=== PATIENT | male | born 1950 | race Caucasian/White ===

== ENCOUNTER 2020-06-01 22:07 | Emergency (ER) | payer OTHER ==
[2020-06-01] MEDS ORDERED: MAG HYDROX/AL HYDROX/SIMETH ES 30 ML SUSP UDCUP ONE (22:59)
[2020-06-01] MEDS ORDERED: ONDANSETRON HCL 4 MG/2 ML VIAL ONE (22:59)
[2020-06-01] MEDS ORDERED: LIDOCAINE HCL 2% VISCOUS 15 ML UDCUP ONE (22:59)
[2020-06-01] MEDS ORDERED: FAMOTIDINE/PF 20 MG/2 ML VIAL IV ONE (23:00)
[2020-06-02 00:37] LABS: BASOPHILS % (AUTO) 0.7 % (0.0-5.0); EOSINOPHILS % (AUTO) 5.7 % (0.0-8.0); HEMATOCRIT 36.6 % (42-54); MEAN CORPUSCULAR HEMOGLOBIN 32.1 pg (27.0-33.0); MEAN CORPUSCULAR HGB CONC 34.2 g/dL (32.0-36.0); MEAN CORPUSCULAR VOLUME 94.1 fL (79-99); MONOCYTES % (AUTO) 11.5 % (3.0-13.0); NEUTROPHILS % (AUTO) 62.8 % (40.0-77.0); PLATELET COUNT (AUTO) 170 K/uL (130-400); RED BLOOD CELL COUNT(AUTO) 3.89 MIL/uL (4.50-6.20); RED CELL DISTRIBUTION WIDTH 12.7 % (11.0-15.5); WHITE BLOOD COUNT (AUTO) 6.7 K/uL (4.8-10.8)
[2020-06-02 00:40] LABS: CREATININE 0.9 mg/dL (0.5-1.5); POTASSIUM 3.6 mmol/L (3.5-5.1)
[2020-06-02 00:55] LABS: ALBUMIN 3.3 g/dL (3.5-5.0); BILIRUBIN,TOTAL 0.2 mg/dL (0.2-1.0); TOTAL PROTEIN, SERUM 6.2 g/dL (6.0-8.3)
== END 2020-06-02 01:27 | disposition home or self-care (01) ==
LOC: EDH 22:07
DX: K29.70 Gastritis, unspecified, without bleeding (principal); I10 Essential (primary) hypertension; J43.9 Emphysema, unspecified
CPT/HCPCS: 36415; 80053; 82550; 83690; 84484; 85025; 93005; 96361; 96374; 96375; 99284; J2405; J3490

== ENCOUNTER 2020-06-06 20:55 | Emergency (ER) | payer OTHER ==
[2020-06-06 21:47] LABS: ABG BASE EXCESS 0.5 mmol/L (-2.0-3.0); ABG HCO3 24.6 mmol/L (21.0-28.0); ABG OXYGEN SATURATION 96.3 % (95.0-99.0); ABG PCO2 38 mmHg (35-48)
[2020-06-06 21:59] LABS: BASOPHILS % (AUTO) 0.7 % (0.0-5.0); EOSINOPHILS % (AUTO) 4.6 % (0.0-8.0); HEMATOCRIT 39.4 % (42-54); LYMPHOCYTES % (AUTO) 19.3 % (21.0-51.0); MEAN CORPUSCULAR HEMOGLOBIN 32.5 pg (27.0-33.0); MEAN CORPUSCULAR HGB CONC 34.8 g/dL (32.0-36.0); MEAN CORPUSCULAR VOLUME 93.4 fL (79-99); MONOCYTES % (AUTO) 10.1 % (3.0-13.0); PLATELET COUNT (AUTO) 178 K/uL (130-400); RED BLOOD CELL COUNT(AUTO) 4.22 MIL/uL (4.50-6.20); RED CELL DISTRIBUTION WIDTH 12.3 % (11.0-15.5)
[2020-06-06] MEDS ORDERED: ALBUTEROL INHALER 90MCG/INH IH ONE (22:02)
[2020-06-06 22:11] LABS: INR 0.96 (0.85-1.15); PARTIAL THROMBOPLASTIN TIME 26.4 SEC (26.3-35.5); PROTHROMBIN TIME 10.4 SEC (9.6-11.6)
[2020-06-06 22:20] LABS: B-TYPE NATRIURETIC PEPTIDE 7 pg/mL (0-100)
[2020-06-06 22:36] LABS: ALBUMIN 3.6 g/dL (3.5-5.0); BILIRUBIN,TOTAL 0.2 mg/dL (0.2-1.0); CREATININE 1.1 mg/dL (0.5-1.5); POTASSIUM 3.9 mmol/L (3.5-5.1); TOTAL PROTEIN, SERUM 6.8 g/dL (6.0-8.3)
[2020-06-06 23:02] LABS: APPEARANCE,URINE Clear (CLEAR); BILIRUBIN,URINE Negative (NEGATIVE); COLOR,URINE Yellow (YELLOW); GLUCOSE, URINE (UA) Negative (NEGATIVE); KETONES,URINE Negative (NEGATIVE); LEUKOCYTE ESTERASE ,URINE Negative (NEGATIVE); NITRATE,URINE Negative (NEGATIVE); OCCULT BLOOD,URINE Negative (NEGATIVE); PH,URINE 5.5 (5.0-8.0); PROTEIN,URINE Negative (NEGATIVE); UROBILINOGEN,URINE 0.2 mg/dL (0.2-1.0)
[2020-06-06] MEDS ORDERED: PREDNISONE 10 MG TABLET ONE (23:07)
[2020-06-06] MEDS ORDERED: AZITHROMYCIN 500MG+NS 250ML 250 ML IV ONE (23:07)
[2020-06-06] MEDS ORDERED: PREDNISONE 20 MG TABLET ONE (23:07)
== END 2020-06-07 00:34 | disposition home or self-care (01) ==
LOC: EDH 20:55
DX: J44.1 Chronic obstructive pulmonary disease with (acute) exacerbation (principal); I10 Essential (primary) hypertension; R11.2 Nausea with vomiting, unspecified; Z20.828 Contact with and (suspected) exposure to other viral communicable diseases
CPT/HCPCS: 36415; 36600; 71045; 80053; 81003; 82550; 82803; 83605; 83690; 83880; 84484; 85025; 85610; 85730; 87040 ×2; 87426; 87804 ×2; 93005; 96365; 99285; J0456; J7512; U0003

== ENCOUNTER 2020-06-20 21:27 | Emergency (ER) | payer OTHER ==
[2020-06-20 22:47] LABS: BASOPHILS % (AUTO) 0.5 % (0.0-5.0); EOSINOPHILS % (AUTO) 2.6 % (0.0-8.0); LYMPHOCYTES % (AUTO) 13.3 % (21.0-51.0); MEAN CORPUSCULAR HEMOGLOBIN 32.3 pg (27.0-33.0); MEAN CORPUSCULAR HGB CONC 34.1 g/dL (32.0-36.0); MEAN CORPUSCULAR VOLUME 94.7 fL (79-99); MONOCYTES % (AUTO) 10.5 % (3.0-13.0); NEUTROPHILS % (AUTO) 72.6 % (40.0-77.0); PLATELET COUNT (AUTO) 183 K/uL (130-400); RED BLOOD CELL COUNT(AUTO) 4.12 MIL/uL (4.50-6.20); WHITE BLOOD COUNT (AUTO) 10.9 K/uL (4.8-10.8)
[2020-06-20 23:11] LABS: ALBUMIN 3.6 g/dL (3.5-5.0); BILIRUBIN,TOTAL 0.2 mg/dL (0.2-1.0)
== END 2020-06-20 23:39 | disposition home or self-care (01) ==
LOC: EDH 21:27
DX: R15.9 Full incontinence of feces (principal); J44.9 Chronic obstructive pulmonary disease, unspecified; I10 Essential (primary) hypertension; Z98.890 Other specified postprocedural states
CPT/HCPCS: 36415; 80053; 82270; 83690; 84484; 85025; 87046; 87324; 93005

== ENCOUNTER 2020-07-27 19:09 | Emergency (ER) | payer OTHER ==
[2020-07-27] MEDS ORDERED: OCTYL 2-CYANOACRYLATE 1 EACH TP ONE (19:48)
== END 2020-07-27 20:13 | disposition home or self-care (01) ==
LOC: EDH 19:09
DX: S61.210A Laceration without foreign body of right index finger without damage to nail, initial encounter (principal); J43.9 Emphysema, unspecified; I10 Essential (primary) hypertension; J45.909 Unspecified asthma, uncomplicated; W26.0XXA Contact with knife, initial encounter; Y93.89 Activity, other specified; Y92.89 Other specified places as the place of occurrence of the external cause; Y99.8 Other external cause status
CPT/HCPCS: 12001

== ENCOUNTER 2020-08-11 00:34 | Observation (INO) | payer OTHER ==
[~2020-08-11] VITALS: Ht 177.8 cm; Wt 67.6 kg
[2020-08-11 01:00] LABS: BASOPHILS % (AUTO) 0.8 % (0.0-5.0); EOSINOPHILS % (AUTO) 4.7 % (0.0-8.0); HEMATOCRIT 40.9 % (42-54); LYMPHOCYTES % (AUTO) 18.7 % (21.0-51.0); MEAN CORPUSCULAR HEMOGLOBIN 32.3 pg (27.0-33.0); MEAN CORPUSCULAR HGB CONC 34.2 g/dL (32.0-36.0); MEAN CORPUSCULAR VOLUME 94.2 fL (79-99); MONOCYTES % (AUTO) 12.5 % (3.0-13.0); NEUTROPHILS % (AUTO) 62.9 % (40.0-77.0); PLATELET COUNT (AUTO) 233 K/uL (130-400); RED BLOOD CELL COUNT(AUTO) 4.34 MIL/uL (4.50-6.20); RED CELL DISTRIBUTION WIDTH 11.8 % (11.0-15.5); WHITE BLOOD COUNT (AUTO) 8.5 K/uL (4.8-10.8)
[2020-08-11 01:18] LABS: INR 0.96 (0.85-1.15); PARTIAL THROMBOPLASTIN TIME 26.3 SEC (26.3-35.5); PROTHROMBIN TIME 10.4 SEC (9.6-11.6)
[2020-08-11 01:20] LABS: B-TYPE NATRIURETIC PEPTIDE < 5 pg/mL (0-100)
[2020-08-11 01:43] LABS: ALBUMIN 4.1 g/dL (3.5-5.0); BILIRUBIN,TOTAL 0.4 mg/dL (0.2-1.0); CREATININE 1.1 mg/dL (0.5-1.5); POTASSIUM 3.8 mmol/L (3.5-5.1); TOTAL PROTEIN, SERUM 7.3 g/dL (6.0-8.3)
[2020-08-11 02:15] LABS: AMPHET/METH SCREEN,URINE NEGATIVE (NEGATIVE); BARBITURATE SCREEN, URINE NEGATIVE (NEGATIVE); BENZODIAZEPINES SCREEN,URINE NEGATIVE (NEGATIVE); CANNABINOID SCREEN,URINE NEGATIVE (NEGATIVE); COCAINE SCREEN,URINE NEGATIVE (NEGATIVE); OPIATE SCREEN,URINE NEGATIVE (NEGATIVE); PHENCYCLIDINE SCREEN,URINE NEGATIVE (NEGATIVE)
[2020-08-11] MEDS ORDERED: NITROGLYCERIN 1GM/1 INCH PACKET TD ONE (04:33)
[2020-08-11] MEDS ORDERED: NITROGLYCERIN 0.4 MG SL TAB SL ONE (04:33)
[2020-08-11] MEDS ORDERED: LACTULOSE 20 GM/30 ML UDCUP PO PRN (05:00)
[2020-08-11] MEDS ORDERED: NITROGLYCERIN 0.4 MG SL TAB SL PRN (05:00)
[2020-08-11] MEDS: NITROGLYCERIN 1GM/1 INCH PACKET TD SCH ×3 (05:00→21:18)
[2020-08-11] MEDS ORDERED: HYDRALAZINE HCL 20 MG/ML VIAL IV PRN (05:00)
[2020-08-11] MEDS ORDERED: ACETAMINOPHEN 325 MG TAB PO PRN ×2 (05:00)
[2020-08-11] MEDS ORDERED: ONDANSETRON HCL 4 MG/2 ML VIAL IV PRN (05:00)
[2020-08-11] MEDS ORDERED: SODIUM CHLORIDE 0.9% 1000ML 1,000 ML IV SCH (05:15)
[2020-08-11 06:20] LABS: HEMOGLOBIN A1C 5.8 % (4.0-6.0)
[2020-08-11 06:23] LABS: THYROID STIMULATING HORMONE 1.79 uIU/mL (0.36-3.74)
[2020-08-11] MEDS: FAMOTIDINE 20MG TAB 20 MG TAB PO SCH ×2 (09:00→21:16)
[2020-08-11] MEDS: ASPIRIN 325 MG TABLET PO SCH (09:00)
[2020-08-11] MEDS: METOPROLOL TARTRATE 25 MG TAB PO SCH ×2 (09:00→21:16)
[2020-08-11] MEDS: ENOXAPARIN SODIUM 40 MG/0.4 ML SYRINGE SQ SCH (09:00)
[2020-08-11] MEDS ORDERED: ASPIRIN 325 MG TABLET ONE (12:58)
[2020-08-11] MEDS ORDERED: METOPROLOL TARTRATE 25 MG TAB ONE (12:58)
[2020-08-11] MEDS ORDERED: ENOXAPARIN SODIUM 40 MG/0.4 ML SYRINGE SQ ONE (12:58)
[2020-08-11] MEDS ORDERED: FAMOTIDINE 20MG TAB 20 MG TAB ONE (12:58)
[2020-08-11] MEDS: ENALAPRIL MALEATE 10 MG TABLET PO SCH (13:45)
[2020-08-11] MEDS ORDERED: IPRATROPIUM/ALBUTEROL SULFATE 3 ML SOLUTION IH SCH (14:00)
[2020-08-11] MEDS ORDERED: IPRATROPIUM/ALBUTEROL SULFATE 3 ML SOLUTION IH ONE (14:19)
[2020-08-11 15:09] VITALS: BP 162/88
--- NOTE | 2020-08-11 17:17 | NUR ---
SPOKE WITH PATIENT FOR DC PLANNING Live alone, is active and independent, no dme , drives, no family here in [place]; follows with dr. das at [facility] [address] and with [facility]. Updated face sheet with sisters number. DCP home STATES WILL DRIVE HIMSELF HOME poss dc today ? Addendum: 08/11/20 at 1719 by STEVEN CAO RN CM Amended: Links added.
[2020-08-11] MEDS: IPRATROPIUM/ALBUTEROL SULFATE 3 ML SOLUTION IH PRN (18:52)
[2020-08-11 19:45] VITALS: BP 144/86
[2020-08-11 23:28] VITALS: BP 130/81
[2020-08-12 03:39] VITALS: BP 129/81
[2020-08-12 05:54] LABS: BASOPHILS % (AUTO) 0.9 % (0.0-5.0); EOSINOPHILS % (AUTO) 5.3 % (0.0-8.0); HEMATOCRIT 40.7 % (42-54); LYMPHOCYTES % (AUTO) 15.9 % (21.0-51.0); MEAN CORPUSCULAR HGB CONC 34.2 g/dL (32.0-36.0); MEAN CORPUSCULAR VOLUME 93.8 fL (79-99); MONOCYTES % (AUTO) 12.1 % (3.0-13.0); NEUTROPHILS % (AUTO) 65.2 % (40.0-77.0); PLATELET COUNT (AUTO) 239 K/uL (130-400); RED BLOOD CELL COUNT(AUTO) 4.34 MIL/uL (4.50-6.20); RED CELL DISTRIBUTION WIDTH 11.8 % (11.0-15.5); WHITE BLOOD COUNT (AUTO) 8.4 K/uL (4.8-10.8)
[2020-08-12] MEDS: NITROGLYCERIN 1GM/1 INCH PACKET TD SCH ×3 (06:01→21:18)
[2020-08-12] MEDS: IPRATROPIUM/ALBUTEROL SULFATE 3 ML SOLUTION IH PRN ×2 (06:20→14:48)
[2020-08-12 07:45] VITALS: BP 114/68
[2020-08-12] MEDS: ASPIRIN 325 MG TABLET PO SCH (09:19)
[2020-08-12] MEDS: ENALAPRIL MALEATE 10 MG TABLET PO SCH ×2 (09:20→14:24)
[2020-08-12] MEDS: METOPROLOL TARTRATE 25 MG TAB PO SCH ×2 (09:20→21:18)
[2020-08-12] MEDS: FAMOTIDINE 20MG TAB 20 MG TAB PO SCH ×2 (09:20→21:18)
[2020-08-12] MEDS: ENOXAPARIN SODIUM 40 MG/0.4 ML SYRINGE SQ SCH (09:21)
[2020-08-12 11:32] VITALS: BP 116/68
--- NOTE | 2020-08-12 14:15 | NUR ---
[facility] PER NM THEIR IS NO STAFF HERE AT THE [facility] TO DO PROCEDURE. [facility] CALLED ([facility]) TO TRY AND TRANSFER PATIENT TO RECEIVE [facility] BUT NO CARDIOLOGY DR OR NURSE ARE AVAILABLE. DR NORTON WAS CALLED WHO IS [facility] TODAY AND STATED THAT PATIENT WILL HAVE TO STAY TILL FRIDAY FOR [facility].
[2020-08-12 16:00] VITALS: BP 111/74
[2020-08-12 20:00] VITALS: BP 120/75
[2020-08-13] VITALS: BP 125/80
[2020-08-13 04:00] VITALS: BP 119/77
[2020-08-13] MEDS: NITROGLYCERIN 1GM/1 INCH PACKET TD SCH ×3 (05:07→20:48)
[2020-08-13 06:00] LABS: EOSINOPHILS % (AUTO) 5.1 % (0.0-8.0); HEMATOCRIT 43.2 % (42-54); LYMPHOCYTES % (AUTO) 16.3 % (21.0-51.0); MEAN CORPUSCULAR HEMOGLOBIN 32.2 pg (27.0-33.0); MEAN CORPUSCULAR HGB CONC 33.8 g/dL (32.0-36.0); MEAN CORPUSCULAR VOLUME 95.2 fL (79-99); MONOCYTES % (AUTO) 10.7 % (3.0-13.0); NEUTROPHILS % (AUTO) 66.5 % (40.0-77.0); PLATELET COUNT (AUTO) 242 K/uL (130-400); RED BLOOD CELL COUNT(AUTO) 4.54 MIL/uL (4.50-6.20); RED CELL DISTRIBUTION WIDTH 11.8 % (11.0-15.5); WHITE BLOOD COUNT (AUTO) 8.4 K/uL (4.8-10.8)
[2020-08-13 06:17] LABS: MAGNESIUM 2.2 mg/dL (1.80-2.40)
[2020-08-13] MEDS: IPRATROPIUM/ALBUTEROL SULFATE 3 ML SOLUTION IH PRN ×3 (06:19→18:42)
[2020-08-13 08:00] VITALS: BP 133/72
[2020-08-13] MEDS: FAMOTIDINE 20MG TAB 20 MG TAB PO SCH ×2 (08:48→20:43)
[2020-08-13] MEDS: ENALAPRIL MALEATE 10 MG TABLET PO SCH ×2 (08:49→13:04)
[2020-08-13] MEDS: ENOXAPARIN SODIUM 40 MG/0.4 ML SYRINGE SQ SCH (08:49)
[2020-08-13] MEDS: ASPIRIN 325 MG TABLET PO SCH (08:49)
[2020-08-13] MEDS: METOPROLOL TARTRATE 25 MG TAB PO SCH ×2 (08:50→20:43)
[2020-08-13 12:00] VITALS: BP 124/73
[2020-08-13 16:00] VITALS: BP 123/78
[2020-08-13 20:00] VITALS: BP 133/75
[2020-08-14] VITALS: BP 136/78
[2020-08-14] MEDS: IPRATROPIUM/ALBUTEROL SULFATE 3 ML SOLUTION IH PRN ×3 (00:05→17:13)
[2020-08-14 04:00] VITALS: BP 135/50
[2020-08-14] MEDS: NITROGLYCERIN 1GM/1 INCH PACKET TD SCH (05:14)
[2020-08-14 07:57] VITALS: BP 121/76
[2020-08-14] MEDS: ENOXAPARIN SODIUM 40 MG/0.4 ML SYRINGE SQ SCH (09:39)
[2020-08-14] MEDS: FAMOTIDINE 20MG TAB 20 MG TAB PO SCH (09:39)
[2020-08-14] MEDS: METOPROLOL TARTRATE 25 MG TAB PO SCH (09:39)
[2020-08-14] MEDS: ENALAPRIL MALEATE 10 MG TABLET PO SCH (09:39)
[2020-08-14] MEDS: ASPIRIN 325 MG TABLET PO SCH (09:40)
[2020-08-14] MEDS ORDERED: REGADENOSON 0.4 MG/5 ML PF SYG IVP SCH (11:00)
[2020-08-14 12:01] VITALS: BP 149/92
[2020-08-14 16:15] VITALS: BP 166/91
--- NOTE | 2020-08-14 16:22 | NUR ---
CM NOTE/BRENDA SCAN AND DC HOME PER [facility] DICTATION THIS AM, IF BRENDA BENIGN, PATIENT CAN F/U OUTPATIENT WITH DR. KOENIG. PRIMARY NURSE, NELL FLOWER, MADE AWARE TO CALL CARDIOLOGY FOR SIGN OFF ORDERS. DR. VELASCO MADE AWARE OF [facility] REPORT OUT BY ME. PATIENT HAS POSSIBLE DISCHARGE HOME TONIGHT ANTICIPATED.
--- NOTE | 2020-08-14 17:47 | NUR ---
discharge patient discharged..explained discharge forms..pt will follow up with pcp and specialists...no new prescriptions given..pt happy to be going home.
== END 2020-08-14 18:45 | disposition home or self-care (01) ==
LOC: EDH 00:34 → EDHIP 04:56 → 3CH 14:30
PROVIDERS: ADMIT Family Medicine; ATTEND Family Medicine
DX: R07.89 Other chest pain (principal); M62.82 Rhabdomyolysis; R79.89 Other specified abnormal findings of blood chemistry; J43.9 Emphysema, unspecified; I10 Essential (primary) hypertension; E78.5 Hyperlipidemia, unspecified; E11.9 Type 2 diabetes mellitus without complications; Z87.891 Personal history of nicotine dependence; Z79.82 Long term (current) use of aspirin; Z79.899 Other long term (current) drug therapy
CPT/HCPCS: 36415 ×3; 71045; 78452; 80048 ×2; 80053; 80061; 80305; 82550 ×3; 82948 ×13; 83036; 83735; 83880; 84443; 84484 ×5; 85025 ×3; 85610; 85730; 93005 ×4; 93017; 94640 ×10; 94664; 96372 ×3; 99285; A9500 ×2; G0378 ×21; J1650 ×4; J2785; 96374

== ENCOUNTER 2021-07-20 18:50 | Emergency (ER) | payer OTHER ==
[~2021-07-20] VITALS: Ht 177.8 cm; Wt 68.0 kg
[2021-07-20 19:20] VITALS: BP 144/76
[2021-07-20] MEDS ORDERED: KETOROLAC 60 MG VIAL (30MG/ML) IM ONE (19:30)
[2021-07-20] MEDS ORDERED: MELO7.5T12 PO (19:56)
== END 2021-07-20 20:12 | disposition home or self-care (01) ==
LOC: EDH 18:50
DX: S76.011A Strain of muscle, fascia and tendon of right hip, initial encounter (principal); M47.816 Spondylosis without myelopathy or radiculopathy, lumbar region; J44.9 Chronic obstructive pulmonary disease, unspecified; I10 Essential (primary) hypertension; F20.9 Schizophrenia, unspecified; Z79.1 Long term (current) use of non-steroidal anti-inflammatories (NSAID); X58.XXXA Exposure to other specified factors, initial encounter; Y93.89 Activity, other specified; Y92.89 Other specified places as the place of occurrence of the external cause; Y99.8 Other external cause status
CPT/HCPCS: 72100; 73502; 96372; 99284; J1885

== ENCOUNTER 2021-11-24 20:38 | Emergency (ER) | payer OTHER ==
[~2021-11-24] VITALS: Ht 177.8 cm; Wt 63.5 kg
[~2021-11-24 20:38] MED LIST: MELO7.5T12 PO
[2021-11-24 20:44] VITALS: BP 136/74
[2021-11-24] MEDS ORDERED: HYDR-3421 PO (21:21)
[2021-11-24] MEDS ORDERED: HYDROXYZINE 25 MG TABLET PO ONE (21:30)
== END 2021-11-24 21:31 | disposition home or self-care (01) ==
LOC: EDH 20:38
DX: M79.10 Myalgia, unspecified site (principal); F20.9 Schizophrenia, unspecified; I10 Essential (primary) hypertension; J44.9 Chronic obstructive pulmonary disease, unspecified; Z79.1 Long term (current) use of non-steroidal anti-inflammatories (NSAID); Z90.79 Acquired absence of other genital organ(s)

== ENCOUNTER 2022-02-25 15:28 | Inpatient (IN) | payer OTHER ==
[~2022-02-25] VITALS: Ht 177.8 cm; Wt 60.0 kg
[~2022-02-25 15:28] MED LIST changes: +HYDR-3421 PO
[2022-02-25 16:20] LABS: BASOPHILS % (AUTO) 0.3 % (0.0-5.0); EOSINOPHILS % (AUTO) 0.4 % (0.0-8.0); HEMATOCRIT 38.4 % (42-54); LYMPHOCYTES % (AUTO) 4.4 % (21.0-51.0); MEAN CORPUSCULAR HGB CONC 34.4 g/dL (32.0-36.0); MONOCYTES % (AUTO) 9.9 % (3.0-13.0); NEUTROPHILS % (AUTO) 84.4 % (40.0-77.0); PLATELET COUNT (AUTO) 171 K/uL (130-400); RED BLOOD CELL COUNT(AUTO) 4.13 MIL/uL (4.50-6.20); RED CELL DISTRIBUTION WIDTH 12.3 % (11.0-15.5); WHITE BLOOD COUNT (AUTO) 12.6 K/uL (4.8-10.8)
[2022-02-25 16:29] LABS: ABG BASE EXCESS 2.4 mmol/L (-2.0-3.0); ABG HCO3 26.2 mmol/L (21.0-28.0); ABG OXYGEN SATURATION 95.2 % (95.0-99.0); ABG PCO2 38 mmHg (35-48)
[2022-02-25 16:33] LABS: INR 1.08 (0.85-1.15); PROTHROMBIN TIME 11.7 SEC (9.6-11.6)
[2022-02-25 16:34] LABS: PARTIAL THROMBOPLASTIN TIME 26.9 SEC (26.3-35.5)
[2022-02-25 16:46] LABS: ALBUMIN 3.4 g/dL (3.5-5.0); BILIRUBIN,TOTAL 0.6 mg/dL (0.2-1.0); CREATININE 0.8 mg/dL (0.5-1.5); TOTAL PROTEIN, SERUM 6.9 g/dL (6.0-8.3)
[2022-02-25] MEDS ORDERED: 0.9%NACL 1000ML 1,000 ML IV ONE (17:00)
[2022-02-25] MEDS ORDERED: CEFTRIAXONE 1G VIAL IVP ONE (17:00)
[2022-02-25] MEDS ORDERED: POTASSIUM BICARB/CIT AC 25 MEQ TABLET.EFF PO ONE (17:00)
[2022-02-25] MEDS ORDERED: DIVA500T52 PO (17:26)
[2022-02-25] MEDS ORDERED: ASPI-1197 PO (17:27)
[2022-02-25] MEDS ORDERED: ENAL20TA18 PO (17:27)
[2022-02-25] MEDS ORDERED: TAMS-1 PO (17:28)
[2022-02-25] MEDS ORDERED: AMLO2.5T4 PO (17:28)
[2022-02-25] MEDS ORDERED: RISP1TAB98 PO (17:29)
[2022-02-25] MEDS ORDERED: MONT-39 PO (17:30)
[2022-02-25] MEDS ORDERED: OMEP40CA21 PO (17:31)
[2022-02-25] MEDS ORDERED: NALT50TA PO (17:32)
[2022-02-25] MEDS ORDERED: CETI10TA57 PO (17:32)
[2022-02-25] MEDS ORDERED: ATOR20TA65 PO (17:33)
[2022-02-25] MEDS ORDERED: FERR324T PO (17:34)
[2022-02-25] MEDS ORDERED: ALBUTEROL INHALER 90MCG/INH IH PRN (19:30)
[2022-02-25] MEDS ORDERED: KCL 20 MEQ ERTAB PO PRN (19:30)
[2022-02-25] MEDS ORDERED: ONDANSETRON 4MG INJ IV PRN (19:30)
[2022-02-25] MEDS ORDERED: ACETAMINOPHEN 325 MG TAB PO PRN (19:30)
[2022-02-25] MEDS ORDERED: POTASSIUM CHLORIDE 20MEQ/100ML 100 ML IV PRN (19:30)
[2022-02-25] MEDS ORDERED: HEPARIN 5,000 UNIT VIAL SQ SCH (19:30)
[2022-02-25] MEDS ORDERED: LIDOCAINE HCL-MPF 1% 2ML VIAL IV PRN (19:30)
[2022-02-25] MEDS ORDERED: ZOLPIDEM TARTRATE 5 MG TAB PO PRN (19:30)
[2022-02-25] MEDS: 0.9%NACL 1000ML 1,000 ML IV SCH (20:41)
[2022-02-25] MEDS: DIVALPROEX SODIUM 250 MG TABLET.DR PO SCH (21:42)
[2022-02-25] MEDS: RISPERIDONE 1 MG TABLET PO SCH (21:42)
[2022-02-26] MEDS: POTASSIUM CHLORIDE 10% ELIXIR 20 MEQ/15 ML UDCUP PO PRN ×3 (00:26→06:08)
[2022-02-26 00:56] VITALS: BP 127/70
[2022-02-26 01:01] LABS: APPEARANCE,URINE Clear (CLEAR); BILIRUBIN,URINE Negative (NEGATIVE); COLOR,URINE Yellow (YELLOW); GLUCOSE, URINE (UA) Negative (NEGATIVE); KETONES,URINE Trace mg/dL (NEGATIVE); LEUKOCYTE ESTERASE ,URINE Negative (NEGATIVE); NITRATE,URINE Negative (NEGATIVE); OCCULT BLOOD,URINE Negative (NEGATIVE); PROTEIN,URINE Negative (NEGATIVE)
[2022-02-26 04:10] VITALS: BP 143/76
[2022-02-26] MEDS: 0.9%NACL 1000ML 1,000 ML IV SCH (06:08)
[2022-02-26 06:31] LABS: BASOPHILS % (AUTO) 0.3 % (0.0-5.0); EOSINOPHILS % (AUTO) 1.7 % (0.0-8.0); HEMATOCRIT 35.2 % (42-54); LYMPHOCYTES % (AUTO) 13.6 % (21.0-51.0); MEAN CORPUSCULAR HGB CONC 33.5 g/dL (32.0-36.0); MEAN CORPUSCULAR VOLUME 95.4 fL (79-99); NEUTROPHILS % (AUTO) 73.6 % (40.0-77.0); PLATELET COUNT (AUTO) 143 K/uL (130-400); RED BLOOD CELL COUNT(AUTO) 3.69 MIL/uL (4.50-6.20); RED CELL DISTRIBUTION WIDTH 12.7 % (11.0-15.5); WHITE BLOOD COUNT (AUTO) 10.3 K/uL (4.8-10.8)
[2022-02-26 06:55] LABS: CREATININE 0.7 mg/dL (0.5-1.5); MAGNESIUM 0.8 mg/dL (1.80-2.40); PHOSPHORUS 2.4 mg/dL (2.5-4.9); POTASSIUM 3.5 mmol/L (3.5-5.1)
[2022-02-26 08:00] VITALS: BP 132/73
[2022-02-26] MEDS: FLUTICASONE/VILANTEROL 1 EACH AER.POW.BA IH SCH (09:00)
[2022-02-26] MEDS: FAMOTIDINE 20MG TAB PO SCH (09:20)
[2022-02-26] MEDS: RISPERIDONE 1 MG TABLET PO SCH ×2 (09:20→21:09)
[2022-02-26] MEDS: DIVALPROEX SODIUM 250 MG TABLET.DR PO SCH ×2 (09:20→21:10)
[2022-02-26] MEDS: HEPARIN 5,000 UNIT VIAL SQ SCH ×2 (09:22→21:21)
[2022-02-26 12:00] VITALS: BP 153/81
[2022-02-26 16:00] VITALS: BP 150/83
[2022-02-26] MEDS ORDERED: MAGNESIUM 4GM PREMIX 100ML 100 ML IV PRN (16:00)
[2022-02-26] MEDS ORDERED: KCL 20 MEQ ERTAB PO ONE (16:00)
[2022-02-26] MEDS: DOXYCYCLINE 100MG+NS 250ML IV SCH (16:26)
[2022-02-26] MEDS: SOLU-MEDROL 40MG VIAL IVP SCH ×2 (16:27→23:33)
[2022-02-26] MEDS ORDERED: [UNRECOGNIZED DRUG - REMARK] MISC SCH (16:30)
[2022-02-26] MEDS: NEUTRA-PHOS PACKET 1 EACH PO SCH ×2 (16:30→21:10)
[2022-02-26] MEDS ORDERED: BUDESONIDE 0.5 MG/2 ML INH IH ONE (18:53)
[2022-02-26] MEDS: IPRATROPIUM/ALBUTEROL SULFATE 3 ML SOLUTION IH SCH ×2 (18:57→23:35)
[2022-02-26] MEDS: BUDESONIDE 0.5 MG/2 ML INH IH SCH (19:04)
[2022-02-26 20:00] VITALS: BP 151/77
[2022-02-26] MEDS ORDERED: ATORVASTATIN 20 MG TABLET PO SCH (21:00)
[2022-02-26] MEDS ORDERED: MONTELUKAST SODIUM 10 MG TAB PO SCH (21:00)
[2022-02-26 21:08] LABS: MAGNESIUM 0.9 mg/dL (1.80-2.40); PHOSPHORUS 1.8 mg/dL (2.5-4.9)
[2022-02-27] VITALS: BP 142/75
[2022-02-27] MEDS ORDERED: 0.9% NACL 250ML 250 ML ONE (02:54)
[2022-02-27] MEDS: DOXYCYCLINE 100MG+NS 250ML IV SCH (03:05)
[2022-02-27 04:00] VITALS: BP 148/86
[2022-02-27 05:42] LABS: BASOPHILS % (AUTO) 0.2 % (0.0-5.0); HEMATOCRIT 40.5 % (42-54); LYMPHOCYTES % (AUTO) 6.3 % (21.0-51.0); MEAN CORPUSCULAR HEMOGLOBIN 32.6 pg (27.0-33.0); MEAN CORPUSCULAR HGB CONC 34.3 g/dL (32.0-36.0); MEAN CORPUSCULAR VOLUME 95.1 fL (79-99); MONOCYTES % (AUTO) 1.4 % (3.0-13.0); NEUTROPHILS % (AUTO) 91.5 % (40.0-77.0); PLATELET COUNT (AUTO) 172 K/uL (130-400); RED BLOOD CELL COUNT(AUTO) 4.26 MIL/uL (4.50-6.20); RED CELL DISTRIBUTION WIDTH 12.3 % (11.0-15.5); WHITE BLOOD COUNT (AUTO) 6.3 K/uL (4.8-10.8)
[2022-02-27 06:08] LABS: % IRON SATURATION 41.6 % (30-44)
[2022-02-27] MEDS: IPRATROPIUM/ALBUTEROL SULFATE 3 ML SOLUTION IH SCH ×2 (06:35→11:11)
[2022-02-27] MEDS: BUDESONIDE 0.5 MG/2 ML INH IH SCH (06:35)
[2022-02-27 06:37] LABS: CREATININE 0.7 mg/dL (0.5-1.5); MAGNESIUM 0.8 mg/dL (1.80-2.40); PHOSPHORUS 3.7 mg/dL (2.5-4.9); POTASSIUM 4.3 mmol/L (3.5-5.1); THYROID STIMULATING HORMONE 0.39 uIU/mL (0.36-3.74)
[2022-02-27 09:00] VITALS: BP 137/75
[2022-02-27] MEDS ORDERED: AMLODIPINE 2.5 MG TAB PO SCH (09:00)
[2022-02-27] MEDS ORDERED: FERROUS GLUCONATE TABLET PO SCH (09:00)
[2022-02-27] MEDS ORDERED: ASPIRIN 81MG CHEW TAB PO SCH (09:00)
[2022-02-27] MEDS ORDERED: NALTREXONE HCL 50 MG PO SCH (09:00)
[2022-02-27] MEDS ORDERED: ENALAPRIL MALEATE 10 MG TABLET PO SCH (09:00)
[2022-02-27] MEDS ORDERED: CETIRIZINE HCL 5 MG TABLET PO SCH (09:00)
[2022-02-27] MEDS ORDERED: TAMSULOSIN HCL 0.4 MG CAP.ER.24H PO SCH (09:00)
[2022-02-27] MEDS ORDERED: DOXY100C5 PO (09:21)
[2022-02-27] MEDS ORDERED: IPRA3AMP24 IH (09:21)
[2022-02-27] MEDS ORDERED: PRED20TA3 PO (09:21)
[2022-02-27] MEDS ORDERED: BUDE0.5A3 IH (09:21)
[2022-02-27] MEDS: DIVALPROEX SODIUM 250 MG TABLET.DR PO SCH (09:44)
[2022-02-27] MEDS: RISPERIDONE 1 MG TABLET PO SCH (09:45)
[2022-02-27] MEDS: FAMOTIDINE 20MG TAB PO SCH (09:46)
[2022-02-27] MEDS: NEUTRA-PHOS PACKET 1 EACH PO SCH ×2 (09:50→14:36)
[2022-02-27] MEDS: FLUTICASONE/VILANTEROL 1 EACH AER.POW.BA IH SCH (09:51)
[2022-02-27] MEDS: HEPARIN 5,000 UNIT VIAL SQ SCH (09:54)
[2022-02-27] MEDS: SOLU-MEDROL 40MG VIAL IVP SCH (10:00)
[2022-02-27] MEDS ORDERED: MAGNESIUM 4GM PREMIX 100ML 100 ML IV SCH (12:32)
[2022-02-27 12:45] VITALS: BP 146/82
[2022-02-27] MEDS ORDERED: MAGNESIUM 2GM PREMIX 50ML 50 ML IV ONE ×2 (12:57→14:35)
== END 2022-02-27 18:00 | disposition home or self-care (01) | DRG 189 ==
LOC: EDH 15:28 → EDHIP 19:04 → OBSVTOIN 19:04 → 4CH 02-26 01:01
PROVIDERS: ADMIT Internal Medicine; ATTEND Internal Medicine
DX: J96.21 Acute and chronic respiratory failure with hypoxia (principal); E43 Unspecified severe protein-calorie malnutrition; Z68.1 Body mass index [BMI] 19.9 or less, adult; M62.82 Rhabdomyolysis; J43.9 Emphysema, unspecified; E87.6 Hypokalemia; E83.42 Hypomagnesemia; E78.5 Hyperlipidemia, unspecified; G47.9 Sleep disorder, unspecified; E83.39 Other disorders of phosphorus metabolism; G47.00 Insomnia, unspecified; K59.00 Constipation, unspecified; E86.0 Dehydration; F20.9 Schizophrenia, unspecified; I10 Essential (primary) hypertension; N40.0 Benign prostatic hyperplasia without lower urinary tract symptoms; Z87.891 Personal history of nicotine dependence; Z79.899 Other long term (current) drug therapy
CPT/HCPCS: 36415; 36600; 71045; 80048; 80053; 81003; 82550; 82607; 82728; 82746; 82803; 83540; 83550; 83605; 83735; 83874; 83880; 84100; 84132; 84145; 84443; 84484; 85025; 85045; 85610; 85730; 87040; 87088; 92610; 93005; 94640; 94664; 94760; G0378; J0696; J1644; J2920; J3475; J3490; J7050

== ENCOUNTER 2022-03-26 09:55 | Emergency (ER) | payer OTHER ==
[~2022-03-26] VITALS: Ht 177.8 cm; Wt 58.5 kg
[~2022-03-26 09:55] MED LIST changes: +AMLO2.5T4 PO; +ASPI-1197 PO; +ATOR20TA65 PO; +BUDE0.5A3 IH; +CETI10TA57 PO; +DIVA500T52 PO; +DOXY100C5 PO; +ENAL20TA18 PO; +FERR324T PO; +IPRA3AMP24 IH; +MONT-39 PO; +NALT50TA PO; +OMEP40CA21 PO; +PRED20TA3 PO; +RISP1TAB98 PO; +TAMS-1 PO
[2022-03-26 10:32] LABS: HEMATOCRIT 38.2 % (42-54); MEAN CORPUSCULAR HEMOGLOBIN 32.7 pg (27.0-33.0); MEAN CORPUSCULAR HGB CONC 34.3 g/dL (32.0-36.0); MEAN CORPUSCULAR VOLUME 95.3 fL (79-99); RED BLOOD CELL COUNT(AUTO) 4.01 MIL/uL (4.50-6.20); RED CELL DISTRIBUTION WIDTH 13.2 % (11.0-15.5); WHITE BLOOD COUNT (AUTO) 7.3 K/uL (4.8-10.8)
[2022-03-26 10:45] LABS: POTASSIUM 3.1 mmol/L (3.5-5.1)
[2022-03-26 10:50] LABS: ALBUMIN 2.8 g/dL (3.5-5.0); BILIRUBIN,TOTAL 0.3 mg/dL (0.2-1.0); TOTAL PROTEIN, SERUM 6.4 g/dL (6.0-8.3)
[2022-03-26 13:52] LABS: APPEARANCE,URINE Clear (CLEAR); BILIRUBIN,URINE Negative (NEGATIVE); COLOR,URINE Yellow (YELLOW); GLUCOSE, URINE (UA) Negative (NEGATIVE); KETONES,URINE 15 mg/dL (NEGATIVE); LEUKOCYTE ESTERASE ,URINE Negative (NEGATIVE); NITRATE,URINE Negative (NEGATIVE); OCCULT BLOOD,URINE Negative (NEGATIVE); PH,URINE 6.5 (5.0-8.0); PROTEIN,URINE Negative (NEGATIVE)
[2022-03-26 14:00] VITALS: BP 123/78
[2022-03-26] MEDS ORDERED: 0.9%NACL 1000ML 1,000 ML IV ONE (14:00)
[2022-03-26] MEDS ORDERED: CEFTRIAXONE 1G VIAL IVP ONE (14:30)
[2022-03-26] MEDS ORDERED: DEXAMETHASONE SOD PHOSPHATE 4 MG/ML 1ML VIAL IVP ONE (14:30)
[2022-03-26 15:07] LABS: BACTERIA,URINE Rare /HPF (None Seen); MUCUS,URINE Rare LPF (None Seen); RBC,URINE 0-1 /HPF (0-1); SQUAMOUS EPITHELIAL CELL,UR Rare /HPF (0-2); WBC,URINE 0-1 /HPF (0-1)
== END 2022-03-26 15:59 ==
LOC: EDH 09:55
DX: E86.0 Dehydration (principal); E87.6 Hypokalemia; K21.9 Gastro-esophageal reflux disease without esophagitis; I10 Essential (primary) hypertension; F20.9 Schizophrenia, unspecified; Z79.899 Other long term (current) drug therapy; Z79.82 Long term (current) use of aspirin; Z98.890 Other specified postprocedural states
CPT/HCPCS: 36415; 80053; 81001; 84484; 85027; 93005; 96360; 99284; J7030; J0696; J1100

== ENCOUNTER 2022-08-10 17:37 | Emergency (ER) | payer OTHER ==
[~2022-08-10] VITALS: Ht 172.7 cm; Wt 70.3 kg
[2022-08-10 17:55] LABS: BASOPHILS % (AUTO) 0.5 % (0.0-5.0); HEMATOCRIT 36.8 % (42-54); LYMPHOCYTES % (AUTO) 18.7 % (21.0-51.0); MEAN CORPUSCULAR HEMOGLOBIN 32.9 pg (27.0-33.0); MEAN CORPUSCULAR HGB CONC 34.5 g/dL (32.0-36.0); MEAN CORPUSCULAR VOLUME 95.3 fL (79-99); MONOCYTES % (AUTO) 10.2 % (3.0-13.0); NEUTROPHILS % (AUTO) 69.4 % (40.0-77.0); PLATELET COUNT (AUTO) 167 K/uL (130-400); RED BLOOD CELL COUNT(AUTO) 3.86 MIL/uL (4.50-6.20); RED CELL DISTRIBUTION WIDTH 12.8 % (11.0-15.5); WHITE BLOOD COUNT (AUTO) 5.9 K/uL (4.8-10.8)
[2022-08-10 18:11] LABS: ALBUMIN 3.6 g/dL (3.5-5.0); CREATININE 0.7 mg/dL (0.5-1.5); MAGNESIUM 1.7 mg/dL (1.80-2.40); POTASSIUM 3.8 mmol/L (3.5-5.1); TOTAL PROTEIN, SERUM 6.9 g/dL (6.0-8.3)
[2022-08-10 18:17] LABS: B-TYPE NATRIURETIC PEPTIDE 13 pg/mL (0-100)
[2022-08-10 22:59] LABS: ABG BASE EXCESS 0.3 mmol/L (-2.0-3.0); ABG HCO3 26.7 mmol/L (21.0-28.0); ABG OXYGEN SATURATION 96.9 % (95.0-99.0); ABG PCO2 50 mmHg (35-48)
[2022-08-10] MEDS ORDERED: PRED20TA3 PO (23:39)
[2022-08-10] MEDS ORDERED: CEFU500T67 PO (23:39)
[2022-08-10 23:58] VITALS: BP 142/79
== END 2022-08-11 00:04 | disposition home or self-care (01) ==
LOC: EDH 17:37
DX: J44.1 Chronic obstructive pulmonary disease with (acute) exacerbation (principal); Z20.822 Contact with and (suspected) exposure to COVID-19; E78.00 Pure hypercholesterolemia, unspecified; I10 Essential (primary) hypertension; F20.9 Schizophrenia, unspecified; Z98.890 Other specified postprocedural states; Z79.899 Other long term (current) drug therapy; Z79.82 Long term (current) use of aspirin
CPT/HCPCS: 99285; 71045; 87635; 82947; 83735; 84484; 80053; 82803; 83880; 85025; 87804 ×2; 83605; 36415; 93005 ×2; 36600; 82435; 84132; 84295; 85018; C9803

== ENCOUNTER 2022-08-11 21:47 | Emergency (ER) | payer OTHER ==
[~2022-08-11] VITALS: Ht 177.8 cm; Wt 56.2 kg
[~2022-08-11 21:47] MED LIST changes: +CEFU500T67 PO
[2022-08-12] MEDS ORDERED: SOLU-MEDROL 125MG VIAL IVP ONE (01:30)
[2022-08-12] MEDS ORDERED: CEFTRIAXONE 1G VIAL IVP ONE (01:30)
[2022-08-12 01:43] LABS: BASOPHILS % (AUTO) 0.2 % (0.0-5.0); EOSINOPHILS % (AUTO) 0.5 % (0.0-8.0); HEMATOCRIT 35.5 % (42-54); LYMPHOCYTES % (AUTO) 8.1 % (21.0-51.0); MEAN CORPUSCULAR HEMOGLOBIN 33.2 pg (27.0-33.0); MEAN CORPUSCULAR HGB CONC 34.6 g/dL (32.0-36.0); MEAN CORPUSCULAR VOLUME 95.7 fL (79-99); MONOCYTES % (AUTO) 9.6 % (3.0-13.0); NEUTROPHILS % (AUTO) 81.4 % (40.0-77.0); PLATELET COUNT (AUTO) 155 K/uL (130-400); RED BLOOD CELL COUNT(AUTO) 3.71 MIL/uL (4.50-6.20); RED CELL DISTRIBUTION WIDTH 12.7 % (11.0-15.5); WHITE BLOOD COUNT (AUTO) 11.1 K/uL (4.8-10.8)
[2022-08-12 01:54] LABS: CREATININE 0.5 mg/dL (0.5-1.5); POTASSIUM 4.9 mmol/L (3.5-5.1)
[2022-08-12 01:59] LABS: ALBUMIN 3.1 g/dL (3.5-5.0); TOTAL PROTEIN, SERUM 6.3 g/dL (6.0-8.3)
[2022-08-12 05:31] VITALS: BP 135/84
== END 2022-08-12 05:28 | disposition home or self-care (01) ==
LOC: EDH 21:47
DX: J44.1 Chronic obstructive pulmonary disease with (acute) exacerbation (principal); I10 Essential (primary) hypertension; F20.9 Schizophrenia, unspecified; Z79.1 Long term (current) use of non-steroidal anti-inflammatories (NSAID); Z79.52 Long term (current) use of systemic steroids; Z79.82 Long term (current) use of aspirin
CPT/HCPCS: 99284; 84484; 80053; 85025; 36415; 96374; 71045; 96375; J2930; J0696

== ENCOUNTER 2022-11-07 21:46 | Emergency (ER) | payer OTHER ==
[~2022-11-07] VITALS: Ht 177.8 cm; Wt 61.2 kg
[~2022-11-07 21:46] MED LIST changes: -AMLO2.5T4 PO; -ATOR20TA65 PO; +BUDE10.2 IH; -CEFU500T67 PO; -DIVA500T52 PO; -DOXY100C5 PO; +FINA5TAB41 PO; +LEVO-70 PO; -MELO7.5T12 PO; +OCEAN NASAL; +PRED20B PO; -PRED20TA3 PO; +RISP1TAB89 PO; -RISP1TAB98 PO; +ROSU5TAB12 PO; +TIOT4MIS5 IH
[2022-11-07 23:04] LABS: BASOPHILS % (AUTO) 0.6 % (0.0-5.0); EOSINOPHILS % (AUTO) 7.7 % (0.0-8.0); HEMATOCRIT 42.8 % (42-54); LYMPHOCYTES % (AUTO) 18.7 % (21.0-51.0); MEAN CORPUSCULAR HEMOGLOBIN 31.8 pg (27.0-33.0); MEAN CORPUSCULAR HGB CONC 33.4 g/dL (32.0-36.0); MEAN CORPUSCULAR VOLUME 95.3 fL (79-99); MONOCYTES % (AUTO) 12.4 % (3.0-13.0); NEUTROPHILS % (AUTO) 60.3 % (40.0-77.0); PLATELET COUNT (AUTO) 158 K/uL (130-400); RED BLOOD CELL COUNT(AUTO) 4.49 MIL/uL (4.50-6.20); RED CELL DISTRIBUTION WIDTH 11.9 % (11.0-15.5); WHITE BLOOD COUNT (AUTO) 6.5 K/uL (4.8-10.8)
[2022-11-07 23:12] LABS: CREATININE 0.7 mg/dL (0.5-1.5); POTASSIUM 4.8 mmol/L (3.5-5.1)
[2022-11-07 23:16] LABS: ALBUMIN 3.8 g/dL (3.5-5.0); TOTAL PROTEIN, SERUM 7.5 g/dL (6.0-8.3)
[2022-11-07 23:26] LABS: B-TYPE NATRIURETIC PEPTIDE < 5 pg/mL (0-100)
[2022-11-08] MEDS ORDERED: IPRATROPIUM 0.5 MG/2.5 ML INH IH ONE (01:30)
[2022-11-08] MEDS ORDERED: MAGNESIUM OXIDE 400 MG TABLET PO SCH (01:30)
[2022-11-08] MEDS ORDERED: ALBUTEROL 0.083% 2.5 MG/3 ML INH IH ONE (01:30)
[2022-11-08] MEDS ORDERED: SOLU-MEDROL 125MG VIAL IVP ONE (01:30)
[2022-11-08 01:50] LABS: ABG BASE EXCESS 1.6 mmol/L (-2.0-3.0); ABG HCO3 27.4 mmol/L (21.0-28.0); ABG OXYGEN SATURATION 92.9 % (95.0-99.0); ABG PCO2 47 mmHg (35-48)
[2022-11-08] MEDS ORDERED: DOXY100C5 PO (03:14)
[2022-11-08] MEDS ORDERED: PERM60CR19 TP (03:14)
[2022-11-08] MEDS ORDERED: PRED20TA3 PO (03:14)
[2022-11-08 03:21] VITALS: BP 153/86
[2022-11-08] MEDS ORDERED: DOXYCYCLINE HYCLATE 100 MG TABLET PO ONE ×2 (03:22→03:30)
== END 2022-11-08 03:32 | disposition home or self-care (01) ==
LOC: EDH 21:46
DX: J44.1 Chronic obstructive pulmonary disease with (acute) exacerbation (principal); R21 Rash and other nonspecific skin eruption; R07.89 Other chest pain; F20.9 Schizophrenia, unspecified; I10 Essential (primary) hypertension; Z79.82 Long term (current) use of aspirin; Z79.899 Other long term (current) drug therapy; Z98.890 Other specified postprocedural states
CPT/HCPCS: 99285; 71045; 82947; 83735; 84484; 80053; 82803; 83880; 85025; 85378; 83605; 36415; 93005; 82435; 84295; 84132; 85018; 96374; 36600; 94640; J2930

== ENCOUNTER 2024-01-21 14:43 | Emergency (ER) | payer OTHER ==
[~2024-01-21] VITALS: Ht 172.7 cm; Wt 72.6 kg
[~2024-01-21 14:43] MED LIST changes: -BUDE0.5A3 IH; -BUDE10.2 IH; +ENAL-91 PO; -ENAL20TA18 PO; -FERR324T PO; -HYDR-3421 PO; -IPRA3AMP24 IH; -LEVO-70 PO; -OCEAN NASAL; -PRED20B PO; -TIOT4MIS5 IH
[2024-01-21] MEDS: SOLU-MEDROL 125MG VIAL IVP ONE (15:21)
[2024-01-21] MEDS: IPRATROPIUM 0.5 MG/2.5 ML INH IH ONE (15:24)
[2024-01-21] MEDS: ALBUTEROL 0.083% 2.5 MG/3 ML INH IH ONE (15:24)
[2024-01-21 15:25] VITALS: PULSE 80; RESP 21
[2024-01-21 15:31] LABS: BASOPHILS # (AUTO) 0.01 K/uL (0.00-0.20); BASOPHILS % (AUTO) 0.1 % (0.0-5.0); EOSINOPHILS # (AUTO) 0.02 K/uL (0.00-0.70); EOSINOPHILS % (AUTO) 0.2 % (0.0-8.0); HEMATOCRIT 32.1 % (42-54); IMMATURE GRANULOCYTE ABSOLUTE 0.13 K/uL (0-1); LYMPHOCYTES # (AUTO) 0.5 K/uL (1.0-4.8); LYMPHOCYTES % (AUTO) 6.1 % (21.0-51.0); MEAN CORPUSCULAR HEMOGLOBIN 33.6 pg (27.0-33.0); MEAN CORPUSCULAR HGB CONC 35.8 g/dL (32.0-36.0); MEAN CORPUSCULAR VOLUME 93.9 fL (79-99); MONOCYTES # (AUTO) 0.9 K/uL (0.1-1.0); MONOCYTES % (AUTO) 10.7 % (3.0-13.0); NEUTROPHILS # (AUTO) 6.5 K/uL (1.8-7.7); NEUTROPHILS % (AUTO) 81.3 % (40.0-77.0); PLATELET COUNT (AUTO) 178 K/uL (130-400); RED BLOOD CELL COUNT(AUTO) 3.42 MIL/uL (4.50-6.20); RED CELL DISTRIBUTION WIDTH 13.2 % (11.0-15.5)
[2024-01-21 15:45] LABS: ALBUMIN 2.8 g/dL (3.5-5.0); BILIRUBIN,TOTAL 0.4 mg/dL (0.2-1.0); CREATININE 0.5 mg/dL (0.5-1.3); POTASSIUM 3.8 mmol/L (3.5-5.1)
[2024-01-21] MEDS ORDERED: AZIT250T9 PO (16:08)
[2024-01-21] MEDS ORDERED: PRED50TA2 PO (16:08)
[2024-01-21] MEDS ORDERED: AUD IH (16:08)
[2024-01-21] MEDS ORDERED: ALBUHFA IH (16:08)
[2024-01-21 16:25] LABS: WBC MORPHOLOGY CONSISTENT W/DIFF
[2024-01-21 20:13] VITALS: BP 132/65; PULSE 73; RESP 18; O2SAT 97
== END 2024-01-21 20:37 ==
LOC: EDH 14:43
DX: J44.1 Chronic obstructive pulmonary disease with (acute) exacerbation (principal); F20.9 Schizophrenia, unspecified; I10 Essential (primary) hypertension; Z79.82 Long term (current) use of aspirin; Z90.79 Acquired absence of other genital organ(s)
CPT/HCPCS: 99285; 96374; 71045; 84484; 80053; 85025; 36415; 93005; 94640; J2930

== ENCOUNTER → 2024-05-28 | Outpatient (CLI) | payer OTHER, MEDICARE ==
[~2024-05-28] VITALS: Ht 177.8 cm; Wt 59.5 kg
[~2024-05-28] MED LIST changes: +ACET-2247 PO; +ALBUHFA IH; +AMLO-258 PO; +ASCO500C19 PO; +AUD IH; +AZIT250T9 PO; +BENZ200C53 PO; +BUDE10.26 IH; +BUSP5TAB3 PO; +CA C1TAB95 PO; +CHOL-34 PO; +CYAN-35 PO; +DOCU-116 PO; +DONE5TAB5 PO; +FERR-72 PO; +FLUO40CA49 PO; +FLUT16H NS; +FOLI0.4T6 PO; +IPRA3AMP24 IH; +LACT10SO5 PO; +LOPE2CAP PO; +METF-444 PO; -NALT50TA PO; +NALT50TA6 PO; +POLY17PO4 PO; +PRED50TA2 PO; -ROSU5TAB12 PO; +ROSU5TAB43 PO; +SIMV-43 PO
[2024-05-28 13:18] LABS: BASOPHILS # (AUTO) 0.03 K/uL (0.00-0.20); BASOPHILS % (AUTO) 0.5 % (0.0-5.0); EOSINOPHILS # (AUTO) 0.19 K/uL (0.00-0.70); EOSINOPHILS % (AUTO) 3.4 % (0.0-8.0); HEMATOCRIT 40.4 % (42-54); IMMATURE GRANULOCYTE ABSOLUTE 0.02 K/uL (0-1); LYMPHOCYTES # (AUTO) 0.9 K/uL (1.0-4.8); LYMPHOCYTES % (AUTO) 15.3 % (21.0-51.0); MEAN CORPUSCULAR HGB CONC 33.4 g/dL (32.0-36.0); MEAN CORPUSCULAR VOLUME 92.9 fL (79-99); MONOCYTES # (AUTO) 0.6 K/uL (0.1-1.0); MONOCYTES % (AUTO) 11.5 % (3.0-13.0); NEUTROPHILS # (AUTO) 3.8 K/uL (1.8-7.7); NEUTROPHILS % (AUTO) 68.9 % (40.0-77.0); PLATELET COUNT (AUTO) 207 K/uL (130-400); RED BLOOD CELL COUNT(AUTO) 4.35 MIL/uL (4.50-6.20); RED CELL DISTRIBUTION WIDTH 13.3 % (11.0-15.5); WHITE BLOOD COUNT (AUTO) 5.6 K/uL (4.8-10.8)
[2024-05-28 13:23] LABS: APPEARANCE,URINE CLEAR (CLEAR); BILIRUBIN,URINE NEGATIVE (NEGATIVE); COLOR,URINE YELLOW (YELLOW); GLUCOSE, URINE (UA) NEGATIVE (NEGATIVE); KETONES,URINE NEGATIVE (NEGATIVE); LEUKOCYTE ESTERASE ,URINE NEGATIVE Leu/uL (NEGATIVE); NITRATE,URINE NEGATIVE (NEGATIVE); OCCULT BLOOD,URINE NEGATIVE (NEGATIVE); PH,URINE 6.5 (5.0-8.0); PROTEIN,URINE NEGATIVE (NEGATIVE); UROBILINOGEN,URINE 0.2 mg/dL (0.2-1.0)
[2024-05-28 13:29] LABS: CREATININE 0.6 mg/dL (0.5-1.3); POTASSIUM 4.2 mmol/L (3.5-5.1)
[2024-05-28 13:31] LABS: ADD UA MICROSCOPIC NO
[2024-05-28 13:33] LABS: INR 1.01 (0.85-1.15); PROTHROMBIN TIME 10.9 SEC (9.6-11.6)
[2024-05-28 13:34] LABS: PARTIAL THROMBOPLASTIN TIME 26.5 SEC (26.3-35.5)
[2024-05-28 13:55] LABS: B-TYPE NATRIURETIC PEPTIDE 11 pg/mL (0-100)
[2024-05-31 09:19] VITALS: BP 118/70; PULSE 70; RESP 16
== END | disposition home or self-care (01) ==
LOC: DAH 10:00 → EDSTATUS 06-01 12:00
PROVIDERS: ATTEND Internal Medicine Cardiovascular Disease
DX: Z01.818 Encounter for other preprocedural examination (principal); I73.9 Peripheral vascular disease, unspecified
CPT/HCPCS: 36415; 71045; 80048; 81003; 83880; 85025; 85610; 85730; 93005